=== PATIENT | female | born 1950 | race Caucasian/White ===

== ENCOUNTER 2017-09-18 17:36 | Emergency (ER) | payer OTHER ==
--- NOTE | 2017-09-18 19:57 | ER ---
Nurse's Notes [facility] Name: Aixa Schulz Age: 67 yrs Sex: Female : 1950 Arrival Date: 09/18/2017 Time: 17:38 Bed 4 Private MD: Drake Lacy R Diagnosis: Constipation Presentation: 09/18 18:10 Presenting complaint: Patient states: has hx of IBS and constipation, has been iw switching between diarrhea and constipation, feels like stool is now impacted. Transition of care: patient was not received from another setting of care. Onset of symptoms was September 18, 2017. Risk Assessment: Do you want to hurt yourself or someone else? Patient reports no desire to harm self or others. Initial Sepsis Screen: Does the patient meet any 2 criteria? No. Patient's initial sepsis screen is negative. Does the patient have a suspected source of infection? No. Patient's initial sepsis screen is negative. Care prior to arrival: None. 18:10 Method Of Arrival: Ambulatory iw 18:10 Acuity: SLADE 3 iw Triage Assessment: 18:23 General: Appears in no apparent distress. uncomfortable, Behavior is calm, cooperative, jl7 appropriate for age. Pain: Complains of pain in right lower quadrant Pain does not radiate. Pain currently is 7 out of 10 on a pain scale. Quality of pain is described as aching, Pain began 2-3 days ago. Is continuous. Neuro: Level of Consciousness is awake, alert, obeys commands, Oriented to person, place, time, situation. Cardiovascular: Patient's skin is warm and dry. Respiratory: Airway is patent Respiratory effort is even, unlabored, Respiratory pattern is regular, symmetrical. GI: Abdomen is round non-distended, Stools are reported to be constipated. Last BM was September 16, 2017. Bowel sounds present X 4 quads. hypoactive in right lower quadrant Abd is soft X 4 quads Abdomen is tender to palpation in right lower quadrant Reports constipation, Patient currently denies diarrhea, nausea, vomiting. Derm: Skin is pink, warm \T\ dry. Historical: - Allergies: 18:12 Codeine; iw - Home Meds: 18:31 carvedilol 6.25 mg oral tab 1 tab [Active]; Lyrica Oral 50 mg [Active]; jl7 - PMHx: 18:12 Headaches; Hypertension; iw - PSHx: 18:31 Rods in back; Cholecystectomy; jl7 - Immunization history:: Adult Immunizations up to date. - Social history:: Smoking status: Patient/guardian denies using tobacco. - Ebola Screening: : No symptoms or risks identified at this time. Screenin:31 Abuse screen: Denies threats or abuse. Denies injuries from another. Nutritional jl7 screening: No deficits noted. Tuberculosis screening: No symptoms or risk factors identified. Fall Risk None identified. Assessment: 18:15 General: See triage assessment. jl7 19:58 Reassessment: Patient passed large BM in bedside commode Patient states feeling better. lp1 Patient states symptoms have improved. Vital Signs: 18:19 BP 150 / 89; Pulse 76; Resp 16 S; Temp 98.7(O); Pulse Ox 100% on R/A; Weight 65.77 kg jl7 (R); Height 5 ft. 5 in. (165.10 cm) (R); Pain 8/10; 19:40 BP 148 / 78; Pulse 77; Resp 18; Pulse Ox 100% on R/A; lp1 18:19 Body Mass Index 24.13 (65.77 kg, 165.10 cm) jl7 ED Course: 17:38 Patient arrived in ED. rg4 17:39 Drake Lacy MD is Private Physician. rg4 18:06 Josemanuel Lagos NP is PHCP. pm1 18:06 Cody Urena MD is Attending Physician. pm1 18:11 Triage completed. iw 18:19 Santana Gaona, RENETTA is Primary Nurse. jl7 18:19 Arm band placed on right wrist. jl7 18:31 Patient has correct armband on for positive identification. Placed in gown. Bed in low jl7 position. Call light in reach. Side rails up X 1. Pulse ox on. NIBP on. 18:45 Abdomen Acute Series XRAY In Process Unspecified. EDMS 19:08 Report given to RENETTA Farias. jl7 19:45 Served as a scanning clerk during rectal exam. Assisted Josemanuel Lagos NP with fecal lp1 disimpaction. 19:56 Drake Lacy MD is Referral Physician. pm1 19:58 Patient did not have IV access during this emergency room visit. lp1 Administered Medications: 19:59 CANCELLED (Physician Discretion): Glycerin (Adult) Suppository 1 supp TN once lp1 Outcome: 19:57 Discharge ordered by . pm1 20:08 Discharged to home ambulatory. lp1 20:08 Condition: good 20:08 Discharge instructions given to patient, Instructed on discharge instructions, follow up and referral plans. medication usage, Demonstrated understanding of instructions, follow-up care, medications, Prescriptions given X 1. 20:09 Patient left the ED. lp1 Signatures: Dispatcher [employer] EDDara Holbrook, RN RENETTA iw Dinora Fairchild RN RN lp1 Josemanuel Lagos NP ROOM SERVICE MANAGER pm1 Kamini Barlow rg4 Santana Gaona RN RN jl7
--- NOTE | 2017-09-18 19:57 | EDPHYS ---
Physician Documentation [facility] Name: Aixa Schulz Age: 67 yrs Sex: Female : 1950 Arrival Date: 09/18/2017 Time: 17:38 Bed 4 Private MD: Drake Lacy R ED Physician Cody Urena HPI: 09/18 19:55 This 67 yrs old Female presents to ER via Ambulatory with complaints of pm1 Constipation. 19:55 Onset: The symptoms/episode began/occurred 3 day(s) ago. Associated signs and symptoms: pm1 Pertinent positives: Bleeding from external hemorrhoid when she tries to defecate. Modifying factors: The patient symptoms are alleviated by nothing, the patient symptoms are aggravated by nothing. The patient has not recently seen a physician, the patient's primary care provider is Dr. Lacy. Patient with a history of IBS, bouts of diarrhea with bouts of constipation. Patient has not had a bowel movement in 2 days. Patient feels pressure in her rectal area. Reports some mild rectal bleeding from her external hemorrhoids with wiping when she has attempted to defecate. Historical: - Allergies: 18:12 Codeine; iw - Home Meds: 18:31 carvedilol 6.25 mg oral tab 1 tab [Active]; Lyrica Oral 50 mg [Active]; jl7 - PMHx: 18:12 Headaches; Hypertension; iw - PSHx: 18:31 Rods in back; Cholecystectomy; jl7 - Immunization history:: Adult Immunizations up to date. - Social history:: Smoking status: Patient/guardian denies using tobacco. - Ebola Screening: : No symptoms or risks identified at this time. ROS: 19:55 Constitutional: Negative for fever, chills, and weight loss, Eyes: Negative for injury, pm1 pain, redness, and discharge, ENT: Negative for injury, pain, and discharge, Neck: Negative for injury, pain, and swelling, Cardiovascular: Negative for chest pain, palpitations, and edema, Respiratory: Negative for shortness of breath, cough, wheezing, and pleuritic chest pain, Back: Negative for injury and pain, MS/Extremity: Negative for injury and deformity, Skin: Negative for injury, rash, and discoloration, Neuro: Negative for headache, weakness, numbness, tingling, and seizure. 19:55 Abdomen/GI: Positive for constipation, Negative for abdominal pain, nausea and vomiting, diarrhea. Exam: 19:55 Constitutional: This is a well developed, well nourished patient who is awake, alert, pm1 and in no acute distress. Head/Face: Normocephalic, atraumatic. Eyes: Pupils equal round and reactive to light, extra-ocular motions intact. Lids and lashes normal. Conjunctiva and sclera are non-icteric and not injected. Cornea within normal limits. Periorbital areas with no swelling, redness, or edema. ENT: Nares patent. No nasal discharge, no septal abnormalities noted. Tympanic membranes are normal and external auditory canals are clear. Oropharynx with no redness, swelling, or masses, exudates, or evidence of obstruction, uvula midline. Mucous membranes moist. Neck: Trachea midline, no thyromegaly or masses palpated, and no cervical lymphadenopathy. Supple, full range of motion without nuchal rigidity, or vertebral point tenderness. No Meningismus. Chest/axilla: Normal chest wall appearance and motion. Nontender with no deformity. No lesions are appreciated. Cardiovascular: Regular rate and rhythm with a normal S1 and S2. No gallops, murmurs, or rubs. No pulse deficits. Respiratory: Lungs have equal breath sounds bilaterally, clear to auscultation and percussion. No rales, rhonchi or wheezes noted. No increased work of breathing, no retractions or nasal flaring. Abdomen/GI: Soft, non-tender, with normal bowel sounds. No distension or tympany. No guarding or rebound. No evidence of tenderness throughout. Back: No spinal tenderness. No costovertebral tenderness. Full range of motion. Skin: Warm, dry with normal turgor. Normal color with no rashes, no lesions, and no evidence of cellulitis. MS/ Extremity: Pulses equal, no cyanosis. Neurovascular intact. Full, normal range of motion. 19:55 Neuro: Orientation: is normal, Motor: moves all fours. Vital Signs: 18:19 BP 150 / 89; Pulse 76; Resp 16 S; Temp 98.7(O); Pulse Ox 100% on R/A; Weight 65.77 kg jl7 (R); Height 5 ft. 5 in. (165.10 cm) (R); Pain 8/10; 19:40 BP 148 / 78; Pulse 77; Resp 18; Pulse Ox 100% on R/A; lp1 18:19 Body Mass Index 24.13 (65.77 kg, 165.10 cm) jl7 MDM: 18:12 Patient medically screened. pm1 19:52 ED course: performing disimpaction and patient felt that she could not tolerate the pm1 procedure after two small pellets of stool removed. Patient felt like she could defecate herself and patient assisted to bedside commode. Patient was able to pass a large stool herself. 19:52 ED course: Chaperoned by Luz Marina JACKSON. pm1 19:55 Data reviewed: vital signs. Data interpreted: Pulse oximetry: on room air is 100 %. pm1 Interpretation: normal. Counseling: I had a detailed discussion with the patient and/or guardian regarding: the historical points, exam findings, and any diagnostic results supporting the discharge/admit diagnosis, radiology results, the need for outpatient follow up, to return to the emergency department if symptoms worsen or persist or if there are any questions or concerns that arise at home. 09/18 18:16 Order name: Abdomen Acute Series XRAY pm1 Administered Medications: 19:59 CANCELLED (Physician Discretion): Glycerin (Adult) Suppository 1 supp CO once lp1 Disposition: 09/18/17 19:57 Discharged to Home. Impression: Constipation. - Condition is Stable. - Discharge Instructions: Constipation, Adult. - Prescriptions for Miralax 17 gram/dose Oral - take 1 packet by ORAL route once daily As needed dilute powder in 8 ounces of water or juice; 7 packet. - Medication Reconciliation Form, Thank You Letter form. - Follow up: Emergency Department; When: As needed; Reason: Worsening of condition. Follow up: Drake Lacy MD; When: As needed; Reason: If symptoms return, Worsening of condition, Recheck today's complaints, Continuance of care. - Problem is new. - Symptoms have improved. Addendum: 09/21/2017 07:19 Co-signature as Attending Physician, Cody Urena MD I agree with the assessment and k dr plan of care. Signatures: Dispatcher [employer] EDNJ Cody Urena MD MD kdr Dara Monterroso RN RN iw Dinora Fairchild RN RN lp1 Josemanuel Lagos NP MATERIAL MAN pm1 Santana Gaona, RN RN jl7 Corrections: (The following items were deleted from the chart) 08 19:59 19:50 Glycerin (Adult) Suppository 1 supp CO once ordered. pm1 lp1 20:09 19:57 09/18/2017 19:57 Discharged to Home. Impression: Constipation. Condition is lp1 Stable. Forms are Medication Reconciliation Form, Thank You Letter, Antibiotic Education, Prescription Opioid Use. Follow up: Emergency Department; When: As needed; Reason: Worsening of condition. Follow up: Drake Lacy; When: As needed; Reason: If symptoms return, Worsening of condition, Recheck today's complaints, Continuance of care. Problem is new. Symptoms have improved. pm1
--- NOTE | 2017-09-18 20:12 | RAD REPORT ---
EXAM DESCRIPTION: RAD - Abdomen Acute Series - 09/18/2017 6:48 pm CLINICAL HISTORY: Abdominal pain, diarrhea, history of irritable bowel COMPARISON: Chest exam March 2017 FINDINGS: No focal mass, consolidation or acute failure. Chronic interstitial lung disease is eviden t similar to comparison. Heart size and pulmonary vasculature are normal. No pleural effusion, pneumo thorax or other acute cardiopulmonary process seen. Bowel gas pattern is nonspecific. No bowel obstruction, free air or other acute findings. Moderate st ool volume seen throughout the colon. Cholecystectomy clips are present. No suspicious calcifications . Bony degenerative changes are present. Scoliosis rods span upper thoracic to lower lumbar level. IMPRESSION: Chronic interstitial lung disease similar to March 2007. Moderate stool volume throughout the colon. No obstruction or other acute finding.
== END 2017-09-18 20:09 | disposition home or self-care (01) ==
LOC: ER 17:36
DX: K59.00 Constipation, unspecified (principal); I10 Essential (primary) hypertension; Z88.5 Allergy status to narcotic agent
CPT/HCPCS: 74022; 99284

== ENCOUNTER → 2019-10-12 | Day surgery (SDC) | payer OTHER ==
--- OUTSIDE RECORDS SUMMARY | 2019-10-12 08:57 | XMS REPORT | Continuity of Care Document ---
:1950 Author Organization [facility] t Address [address] [place] [address] Care Team Providers Name Role Phone Reina Salazar MD Attending Clinician Jorge GUTIERREZ Attending Clinician Problems This patient has no known problems. Allergies, Adverse Reactions, Alerts This patient has no known allergies or adverse reactions. Medications This patient has no known medications. Procedures This patient has no known procedures. Encounters Start End Encounter Admission Attending Care Care Encounter Source Date/Time Date/Time Type Type Clinicians Facility Department ID 2019-04-07 2019-04-07 Office Gabriela Salazar [facility] [id number] 13:52:01 15:29:36 Visit Enrique Patel [id number] [id number] [id number] Results This patient has no known results.
--- NOTE | 2019-10-12 10:05 | RAD REPORT ---
EXAM DESCRIPTION: US - Breast Core BX w/US Guidance - 10/12/2019 9:17 am CLINICAL HISTORY: N63.25 COMPARISON: Breast ultrasound October 05, 2019 TECHNIQUE: The patient presents for ultrasound-guided biopsy of a previously detailed 12-15 mm mass in the 6 o'clock left breast. The ultrasound-guided core biopsy procedure, risks and alternatives were discussed with the patient i n detail. After answering all questions, both oral and written consent were obtained. Time out proced ure was performed. The patient had no contraindicated allergy or medication history. Preliminary imaging identified the 6 o'clock left breast mass. The left breast was prepped and draped in the usual sterile fashion. From a approach, skin and deeper tissues were anesthetized with 1% l idocaine. Under direct sonographic visualization a 14 gauge vacuum assisted core biopsy needle was ad vanced and placed at the margin of the mass. There were a total of 2 core biopsies obtained under dir ect sonographic guidance. Post biopsy imaging showed the needle to traverse the mass x2. At the conclusion of the procedure a localization clip was placed under sonographic guidance. Post biopsy imaging showed no hematoma or measurable bleeding within the breast. Hemostasis was obtai vanita at the skin site with a sterile bandage placed. Post procedure care and precaution instructions were given to the patient. IMPRESSION: 1. Ultrasound-guided core biopsy was performed of the 6 o'clock left breast mass. All ob tained material was given to pathology for histologic assessment. 2. Post biopsy localization clip was placed under ultrasound guidance.
== END ==
LOC: DS 08:11
PROVIDERS: ATTEND Clinical Nurse Specialist Women's Health
DX: C50.812 Malignant neoplasm of overlapping sites of left female breast (principal); Z17.0 Estrogen receptor positive status [ER+]
CPT/HCPCS: 19083; 88305